=== PATIENT | female | born 1985 | race Hispanic/Latino ===

== ENCOUNTER 2016-11-04 23:54 | Observation (INO) | payer OTHER ==
[~2016-11-04] VITALS: Ht 160 cm; Wt 131.3 kg
[2016-11-04 23:58] VITALS: BP 135/87; PULSE 109; RESP 16; O2SAT 97
--- NOTE | 2016-11-05 00:06 | ED.REPORT ---
HPI-General Illness Date of Service Nov 05, 2016 ED Provider: MD Percy This is a 30 year old female with history of recent dental procedure presenting complaining of throat swelling that began 4 hours ago. Associated symptoms include tongue swelling, pain, and mild SOB. Pt had a root canal 5 days ago and is taking penicillin at this time. Denies voice changes, fever, chills, nausea, vomiting, headache, or ear pain. Nursing Notes Stated Complaint: SWOLLEN THROAT, TROUBLE BREATHING Chief Complaint: General Complaint Nursing Notes Reviewed: Yes Allergies: Coded Allergies: No Known Allergies (Unverified , 11/05/16) General Time Seen by MD: 00:05 Chief Complaint Other Hx Obtained From: Patient Arrived By: Walk-in Sudden in Onset?: Yes Onset Occurred: 1 - 4 hours ago Symptom Duration: Since onset Pertinent Negative: Pt denies other symptoms Recent Healthcare: No recent doctor visit, No recent hospitalization Similar Sx Previous: No Past Medical History Past Medical History Denies Past Surgical History Denies Ambulatory Status Independent Review of Systems Full Review of Systems Constitutional: Denies: Chills, Fever Ears / Nose / Throat: Reports: Throat swelling, Tongue swelling Respiratory: Reports: Shortness of breath, Denies: Non-productive cough Complete sys rev & neg: except as marked. Physical Exam Vital Signs Vital Signs Date Time Temp Pulse Resp B/P Pulse Ox O2 Delivery O2 Flow Rate FiO2 11/04/16 23:58 37.4 109 16 135/87 97 Room Air Initial VS: Reviewed Head / Eyes: Atraumatic, Normocephalic, PERRL Cardiovascular: Regular rate & rhythm, Heart sounds normal, Intact distal pulses Skin: Warm, Dry, No cyanosis Neurologic: Alert, Oriented, Nonfocal Psychiatric: Mood/affect normal, Behavior normal, Normal thought content General/Constitutional: Awake, Alert ENT: Mucous membranes moist Mouth: Positive: Pooling of secretions swelling under R tongue with deviation of tongue to the left Neck: Full range of motion Soft Tissue Neck: Positive: Swelling present... (no fluctuance ) Respiratory / Chest: Breath sounds = bilat, No respiratory distress, No rhonchi , No wheezing, No stridor Interpretation & Diagnostics CT NECK CONCLUSION: Mild inflammation along the right aspect of thyrohyoid muscle noted with adjacent reactive lymph nodes and no evidence of drainable fluid collection Lab Results Interpretation Result Diagram: 11/05/16 0020 11/05/16 0020 Test 11/05/16 00:20 Prothrombin Time 9.7sec (8.1-12.5) Prothromb Time International Ratio 0.91ratio Magnesium Level 1.9mg/dL (1.6-2.6) Lipase 18U/L (13-60) Re-Eval/Medical Decision Med Decision/Clinical Course 30-year-old female presents with a dental infection affecting the floor for mouth on the right. CT scan shows an intact airway but significant swelling and phlegmon around the anterior portion mouth under the tongue but medial to the jawline. She is begun with IV clindamycin and high-dose Decadron. ENT will follow. Admitted to the medicine service. Time of Eval: 02:53 Patient Status: Mild relief Re-Evaluation/Progress Note: Discussed plan for admission, all questions addressed. Consultation #1: Referral / Consult Name: Angel Melendez MD Consulted With: ENT Call Returned at: 02:55 Timber Setter: Agrees with eval, Agrees with plan Consultation #2: Referral / Consult Name: Cj Gunderson MD Consulted With: Hospitalist Call Returned at: 02:59 Timber Setter: Accepts admit Counseled Regarding: Diagnosis, Lab results, Need for follow-up, Need for admission Discharge & Departure Primary Impression: Phlegmon Additional Impressions: Mouth swelling Odontogenic infection of jaw Disposition: ADMITTED TO HOSPITAL Discharge Condition All VS Reviewed: Yes Condition: Stable Scribe Attestation Portions of this note were transcribed by Selma Calle. I, Dr. Greer personally performed the history, physical exam and medical decision-making; I reviewed and confirmed the accuracy of the information in the transcribed note. Signed by: tono Bello. 11/04/2016, 00:40 Nuno Greer MD Nov 05, 2016 00:05 SELMA CALLE Nov 05, 2016 00:12 97mEq/L (97-108) Carbon Dioxide Level 26mmol/L (18-29) Blood Urea Nitrogen 8mg/dL (6-20) Creatinine 0.49mg/dL (0.57-1.00) Estimat Glomerular Filtration Rate 212mL/min (>59) Glucose Level 92mg/dL (60-99) Calcium Level 9.3mg/dL (8.5-10.1) Magnesium Level 1.9mg/dL (1.6-2.6) Total Bilirubin 0.7mg/dL (0.0-1.2) Aspartate Amino Transf (AST/SGOT) 25U/L (0-50) Alanine Aminotransferase (ALT/SGPT) 41U/L (0-32) Alkaline Phosphatase 81U/L (25-150) Total Protein 8.0g/dL (6.4-8.4) Albumin 4.2g/dL (3.4-5.0) Lipase 18U/L (13-60) Re-Eval/Medical Decision Time of Eval: 02:53 Patient Status: Mild relief Re-Evaluation/Progress Note: Discussed plan for admission, all questions addressed. Consultation #1: Referral / Consult Name: Angel Melendez MD Consulted With: ENT Call Returned at: 02:55 Timber Setter: Agrees with eval, Agrees with plan Consultation #2: Referral / Consult Name: Cj Gunderson MD Consulted With: Hospitalist Call Returned at: 02:59 Timber Setter: Accepts admit Counseled Regarding: Diagnosis, Lab results, Need for follow-up, Need for admission Discharge & Departure Primary Impression: Phlegmon Additional Impression: Mouth swelling Disposition: ADMITTED TO HOSPITAL Discharge Condition All VS Reviewed: Yes Condition: Stable Scribe Attestation Portions of this note were transcribed by Selma Calle. I, Dr. Greer personally performed the history, physical exam and medical decision-making; I reviewed and confirmed the accuracy of the information in the transcribed note. Signed by: tono Bello. 11/04/2016, 00:40 Nuno Greer MD Nov 05, 2016 00:05 SELMA CALLE Nov 05, 2016 00:12
[2016-11-05] MEDS ORDERED: 0.9% Sodium Chloride 1,000 ML IV ONE ×2 (00:08→01:50)
[2016-11-05] MEDS ORDERED: Ondansetron 2 mg/mL 2 mL Inj IVPUSH ONE (00:10)
[2016-11-05] MEDS ORDERED: Dexamethasone 10 mg/mL Inj IVPUSH ONE (00:10)
[2016-11-05] MEDS: HYDROmorphone 1 mg/mL Inj IVPUSH PRN ×2 (00:10→01:43)
[2016-11-05] MEDS ORDERED: Clindamycin Inj 900 MG in IV Premix 1 EACH IV ONE (00:15)
[2016-11-05 00:42] LABS: BASOPHILS % (AUTO) 0.1 % (0-3); EOSINOPHILS % (AUTO) 0.5 % (0-5); MONOCYTES % (AUTO) 5.4 % (4-12); Mean Corpuscular Hemoglobin 28.2 pg (27.0-35.0); Mean Corpuscular Volume 83.8 fL (81-100); NEUTROPHILS % (AUTO) 77.2 % (40-74); Platelet Count 234 bil/L (150-400)
[2016-11-05 00:56] LABS: INR 0.91 ratio
[2016-11-05 01:09] LABS: Magnesium 1.9 mg/dL (1.6-2.6)
[2016-11-05] MEDS ORDERED: Ondansetron 2 mg/mL 2 mL Inj IVPUSH PRN (03:25)
[2016-11-05] MEDS ORDERED: Alum-Mag Hydrox-Simeth 30 mL Suspension PO PRN (03:25)
[2016-11-05] MEDS ORDERED: Polyethylene Glycol (PEG) 17 Gm Powder PO PRN (03:25)
[2016-11-05] MEDS: HYDROmorphone 0.5 mg/0.5 mL iSecure Syringe IVPUSH PRN ×2 (03:27→03:56)
--- NOTE | 2016-11-05 03:57 | PCM.HPMED ---
Subjective Date of Service Nov 05, 2016 Primary Provider: Admitting Physician: Primary Care Physician: Kim Attending Physician: Chief Complaint: mouth swelling History of Present Illness: Healthy 30 yo F presented to the ED with complaints of throat swelling that began earlier today. She reports that she had a right lower molar root canal last , then developed increasing pain so she was prescribed Penicillin at her dental office on Saturday. She reports the pain has been increasing and also endorses chills, tongue swelling, and some mild SOB. She has been unable to tolerate PO intake besides her medications and fluids these past few days. In the ED, she was given Dexamethasone to decrease the swelling and was started on IV Clindamycin after consulting ENT. Review of Systems: 12 Point ROS negative except as stated in HPI Allergies Coded Allergies: No Known Allergies (Unverified , 11/05/16) Home Medications Denies any PMH Reports distant history of Asthma, but has not used an inhaler over 10 years. Surgical History 2 Sections Family History Noncontributory Social History Hx Alcohol Use: Yes (occasional) Hx Substance Use: No Living Arrangement: with Family (Recently moved up from [place].) Exam Vital Signs Vital Sign - Last Date Time Temp Pulse Resp B/P Pulse Ox O2 Delivery O2 Flow Rate FiO2 11/04/16 23:58 37.4 109 16 135/87 97 Room Air Intake and Output 11/04/16 11/04/16 11/05/16 Cumulative From/Thru 15:00 23:00 07:00 11/04/16 23:58 - 11/05/16 01:28 Intake Total 1000 ml 1000 ml Balance 1000 ml 1000 ml Intake IV Total 1000 ml 1000 ml Exam Gen: Obese female in no acute distress HEENT: PERRLA, Sclera anicteric, Moderate Swelling of right mandibular soft tissue, Oral mucosa pink and non-erythematous, no discharge, poor dentition, denudation of anterior tip of tongue mucosa Neck: Soft, moderately tender to palpation of right anterior and posterior neck , multiple anterior cervical lymph nodes palpated CV: RRR, no m/r/c noted Resp: CTAB, normal respiratory effort Abd: Soft, obese, non-tender Msk: MS grossly intact and equal. Neuro: Alert and oriented, CN Grossly intact Skin: warm, dry, intact, no rashes noted Psych; Appropriate mood and affect Lab and Diagnostics Result Diagram: 11/05/16 0020 11/05/16 0020 X-Rays, CTs and MRIs CT Neck NightShift preliminary Report There is Submandibular and Submental celullitis R>L Mild inflammation along right aspect of the mylohyoid muscle noted, adjacent reactive lymph nodes, and no evidence of a drainable fluid collection. Assessment & Plan Healthy 30 yo F who underwent a dental procedure 4 days ago presents to the ED with complaints of throat swelling that began earlier today. #Deep Tissue Infection of Neck -Includes cellulitis of Submandibular and submental region and inflammation of right mylohyoid muscle as noted on CT. -Airway is currently stable and ENT has been consulted, they will assess patient in the AM -Will continue IV Clindamycin Q8h and IV NS 150mls/hr. -Currently NPO in anticipation of any procedure. -Pain management with IV Toradol and IV Morphine for severe pain. Bowel Regimen Prn constipation Restoril prn insomnia Pain Evaluation: Adequate Pain Control VTE Prophylaxis: Sub-Q Heparin (Unfractionated) Resuscitation Status: CPR: Attempt Resuscitation Attending Statement The patient was seen and examined together with Dr. Hardin on 11/05/16 and I agree with the history, exam and plan as outlined in the note above. Jun Hardin DO Nov 05, 2016 03:57 Cj Gunderson MD Nov 05, 2016 04:44
[2016-11-05 04:05] VITALS: BP 136/82; PULSE 100; RESP 18; O2SAT 98
[2016-11-05 04:32] VITALS: BP 136/80; PULSE 100; RESP 18; O2SAT 98
[2016-11-05] MEDS: 0.9% Sodium Chloride 1,000 ML IV SCH ×2 (04:41→20:56)
[2016-11-05 04:51] LABS: APPEARANCE,URINE CLOUDY (CLEAR,HAZY); COLOR,URINE STRAW (YELLOW); PH,URINE 6.5 (5.0-8.0)
[2016-11-05 04:52] LABS: OCCULT BLOOD,URINE TRACE (NEGATIVE); UROBILINOGEN,URINE NORMAL (NORMAL)
[2016-11-05 05:01] VITALS: BP 119/79; PULSE 89; RESP 16; O2SAT 96
--- NOTE | 2016-11-05 06:52 | NUR ---
Admit Pt arrived via wheelchair at 0420 to [facility] transferred w/ ease. Pt is a normal healthy adult, no health history, this is first hospitalization other than previous c-sections. Pt is doing well and oriented to room and call light for safety.
[2016-11-05 07:11] LABS: BASOPHILS % (AUTO) 0 % (0-3); EOSINOPHILS % (AUTO) 0 % (0-5); Mean Corpuscular Hemoglobin 28.3 pg (27.0-35.0); NEUTROPHILS % (AUTO) 90.9 % (40-74); Platelet Count 239 bil/L (150-400)
[2016-11-05 08:30] VITALS: BP 123/74; PULSE 86; RESP 20; O2SAT 98
[2016-11-05] MEDS ORDERED: Clindamycin Inj 900 MG in IV Premix 1 EACH IV SCH (08:30)
[2016-11-05] MEDS ORDERED: DEXAMETHASONE IV ONE (08:40)
[2016-11-05] MEDS ORDERED: SODIUM CHLORIDE PHA MIX 0.9% IV ONE (08:40)
[2016-11-05] MEDS: Heparin 5,000 Unit/mL Inj SUBQ SCH ×2 (08:46→16:19)
--- NOTE | 2016-11-05 09:36 | NUR ---
Social Work: Brief Note Data & Assessment: EMR Reviewed. Patient is a 30 y/o female that admitted for Phlegmon R. floor of mouth. Patient's NOK is listed as Forrest brice [phone]. Patient does not havr a DPOA on file. Patient's PCP is not listed. Patient's insurance is [employer]. Patient does not have any current discharge needs. SW will continue to follow incase a need arise. Plan: It is likely that the patient will discharge home via POV no needs. SW will continue to follow for discharge planning needs. Smiley Peng, CECELIA, ACM
--- NOTE | 2016-11-05 09:40 | DRSVH ---
PROCEDURE: CT NECK SOFT TISSUES WITH CONTRAST ([id number]) INDICATIONS: swollen floor of mouth TECHNIQUE: After the administration of intravenous contrast, 3.0 mm axial sections acquired from the sella to th e aortic arch. Additional oblique axial 3.0 mm sections acquired through the pharynx. 3 mm thick co michael reformats were generated. For radiation dose reduction, the following was used: automated exp osure control. COMPARISON: None. FINDINGS: Image quality: Excellent. Lymph nodes: Enlarged bilateral level I, level II and level III lymph nodes are noted likely represen t reactive lymph nodes associated with cellulitis. Vessels: Visualized vasculature appears patent. Neck spaces: Mild inflammatory changes noted in the submental and submandibular soft tissues, right greater than left. No abscess. The oropharynx, nasopharynx, and pharynx demonstrate no mucosal lesion s. The vocal cords, false vocal cords, pyriform sinuses, epiglottis, vallecula, and tongue base all appear normal. Extramucosal spaces appear unremarkable. Glands: The parotid and submandibular glands appear normal. Thyroid gland is within normal limits. Miscellaneous: Visualized brain and orbits appear normal. Lung apices appear clear. Superficial so ft tissues appear normal. Bones: No suspicious bony lesions. Visualized sinuses and mastoids appear unremarkable. IMPRESSION: 1. Mild cellulitis involving the submental and submandibular soft tissues, right greater than left. 2. No abscess. 3. No chaya evidence of osteomyelitis. CT imaging can be insensitive to osteomyelitis during the init ial 15 days of the disease process. If there is clinical concern for osteomyelitis, then three-phase nuclear medicine bone scan is warranted. Dictated by: Ele Shaver MD, PhD on 11/05/2016 at 9:38 Approved by: Ele Shaver MD, PhD on 11/05/2016 at 9:38
--- NOTE | 2016-11-05 11:02 | NUR ---
ENT consult Hospitalist maddison paged [phone] Melendez would like to discuss pt status. Per hospitalist at 1030 rounds, has left message for Dr. Melendez. Pt stable.
[2016-11-05] MEDS ORDERED: oxyCODONE-Acetamin 5-325 mg Tablet PO PRN (13:10)
--- NOTE | 2016-11-05 13:19 | PCM.PNMED ---
Subjective Date of Service Nov 05, 2016 Subjective 30-year-old woman with soft tissue infection of neck, related to dental infection. Currently status post exploration by ENT, Dr. Pita Melendez. There is no abscess. She is experiencing moderate dysphagia. Pain is generally adequately controlled. No systemic symptoms at this time. Exam Vital Signs Vital Sign - Last Date Time Temp Pulse Resp B/P Pulse Ox O2 Delivery O2 Flow Rate FiO2 11/05/16 08:30 36.7 86 20 123/74 98 Room Air Intake and Output 11/04/16 11/04/16 11/05/16 Cumulative From/Thru 15:00 23:00 07:00 11/04/16 23:58 - 11/05/16 05:01 Intake Total 1000 ml 1000 ml Balance 1000 ml 1000 ml Intake IV Total 1000 ml 1000 ml # Voids 2 2 Exam General: Obese young woman appears mildly uncomfortable HEENT: Limited opening of jaw. No mucosal lesions. Palpable induration approximately 4 cm x 4 cm Center submandibular Neck: Supple no adenopathy Chest: clear to auscultation Cardiac: S1S2, no murmur Abdomen: BS normal, non-tender Extremities: No pedal edema Neuro: A&O, cranial nerves symmetric, motor strength 5/5, coordination normal IVs and Medications Medications Reviewed: Medications were reviewed in detail Lab and Diagnostics Result Diagram: 11/05/1660611/05/16 0607 X-Rays, CTs and MRIs CT Neck NightShift preliminary Report There is Submandibular and Submental celullitis R>L Mild inflammation along right aspect of the mylohyoid muscle noted, adjacent reactive lymph nodes, and no evidence of a drainable fluid collection. Assessment & Plan Healthy 30 yo F who underwent a dental procedure 4 days ago presents to the ED with complaints of throat swelling that began earlier today. #Deep Tissue Infection of Neck -Includes cellulitis of Submandibular and submental region and inflammation of right mylohyoid muscle as noted on CT. -Airway is currently stable and ENT judges that she is stable for discharge when on adequate by mouth regimen -We will switch clindamycin to by mouth -Full liquid diet -Pain management with by mouth naproxen and Percocet - Discontinue IV fluids and see if she can maintain adequate hydration and oral pain control today - Plan to discharge in a.m. - Recommend prompt follow up with [facility] dental [facility] for tooth extraction VTE Prophylaxis: Sub-Q Heparin (Unfractionated) Resuscitation Status: CPR: Attempt Resuscitation Time spent 25 minutes Dave Valdovinos MD Nov 05, 2016 13:19
--- NOTE | 2016-11-05 13:20 | NUR ---
Status Pt tolerating water and ensure w/o difficulty, pain controlled so far this shift. Denies SOB. Up OOB to bathroom and for self cares. Pt will [facility] tomorrow to determine availability of appointment.
[2016-11-05 15:05] VITALS: BP 118/71; PULSE 86; RESP 18; O2SAT 95
[2016-11-05 20:30] VITALS: BP 128/75; PULSE 79; RESP 18; O2SAT 95
--- NOTE | 2016-11-05 23:46 | CONS ---
[address] [address] CONSULTATION REPORT PATIENT: JAYLON CHEEK : 1985 MR#: [id number] ADMIT: 11/05/2016 JOB ID: [id number] DATE OF SERVICE: HISTORY OF PRESENT ILLNESS: This is a 30-year-old female who was admitted from the emergency department early in the morning of November 05. She had problems with her right third molar and had been developing significant swelling and discomfort. A CT scan taken early that morning did not show a abscess formation, however, did show a lot of soft tissue swelling. The patient was having difficulty chewing, as well as swallowing. She was given IV antibiotics and steroids, and admitted to the hospital. When I saw her approximately six hours later, she was in much less discomfort, she was able to swallow in more improved fashion. She was having about the same amount of swelling. She was having less tenderness. PHYSICAL EXAMINATION: Showed a fullness to bimanual palpation to the area beneath the mandible near the right third molar. ASSESSMENT: Right dental abscess. PLAN: I would continue hydration, IV antibiotics, and consider discharge as possible to have the tooth extracted. That will hopefully be curative in her. I will continue to follow her with you.
[2016-11-06 00:41] VITALS: PULSE 81; RESP 18; O2SAT 97
[2016-11-06] MEDS: Heparin 5,000 Unit/mL Inj SUBQ SCH (00:41)
[2016-11-06 06:09] VITALS: BP 61/75; PULSE 86; RESP 18; O2SAT 95
--- NOTE | 2016-11-06 07:22 | NUR ---
Oral Airway intact. Pt tolerated full liquid diet well. No swallow difficulties noted or reported. Also putting was given to pt with oral antibiotic. Pt tolerated well. She is enthusiastic to eat breakfast this am. VSS. No overt complications noted.
[2016-11-06 07:51] VITALS: BP 111/61; PULSE 86; RESP 16; O2SAT 99
[2016-11-06] MEDS ORDERED: NAPR500T5 PO (08:05)
[2016-11-06] MEDS ORDERED: OXYC1TAB24 PO (08:05)
[2016-11-06] MEDS ORDERED: CLIN-78 PO (08:05)
--- NOTE | 2016-11-06 08:08 | PCM.DIMED ---
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 Diet Other (keep up fluid intakes, soft foods as tolerated until symptoms improve) Activity No restrictions Call your provider Fever or Chills Patient Instructions He should call [facility] dental clinic and indicate that you were hospitalized for an infection of the mouth and throat and need urgent dental attention. Follow-up plan Contact your primary care provider for follow-up appointment within 1 week. Dave Valdovinos MD Nov 06, 2016 08:08
--- NOTE | 2016-11-06 08:11 | PCM.DC.MED ---
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 Brief History History of Present Illness (per admission note): Healthy 30 yo F presented to the ED with complaints of throat swelling that began earlier today. She reports that she had a right lower molar root canal last , then developed increasing pain so she was prescribed Penicillin at her dental office on Saturday. She reports the pain has been increasing and also endorses chills, tongue swelling, and some mild SOB. She has been unable to tolerate PO intake besides her medications and fluids these past few days. In the ED, she was given Dexamethasone to decrease the swelling and was started on IV Clindamycin after consulting ENT. Hospital Course Healthy 30 yo F who underwent a dental procedure 4 days ago presents to the ED with complaints of throat swelling that began earlier today. #Deep Tissue Infection of Neck -Includes cellulitis of Submandibular and submental region and inflammation of right mylohyoid muscle as noted on CT. -Airway is currently stable and ENT judges that she is stable for discharge when on adequate by mouth regimen -We will switch clindamycin to by mouth 600 mg 4 times a day 5 days -Full liquid diet, advance as tolerated -Pain management with by mouth naproxen and Percocet - Patient was able to maintain adequate by mouth intake and urine output on oral regimen prior to discharge - Recommend prompt follow up with [facility] dental clinic for tooth extraction Exam Vital Signs (Last) Date Time Temp Pulse Resp B/P Pulse Ox O2 Delivery O2 Flow Rate FiO2 11/06/16 07:51 36.5 86 16 111/61 99 11/06/16 06:09 Room Air Exam General: Obese woman no acute distress HEENT: sclerae anicteric, oral mucosa moist, difficult to open jaw fully, no oral ulceration or exudative lesions Neck: no JVD, tender below jaw palpable induration, no cervical adenopathy Chest: clear to auscultation Cardiac: S1S2, no murmur Abdomen: BS normal, non-tender Extremities: No pedal edema Neuro: A&O, cranial nerves symmetric, motor strength 5/5, Test 11/05/16 00:20 11/05/16 04:15 11/05/16 06:07 Prothrombin Time 9.7sec (8.1-12.5) Prothromb Time International Ratio 0.91ratio Magnesium Level 1.9mg/dL (1.6-2.6) Lipase 18U/L (13-60) Urine Color Straw (YELLOW) Urine Appearance Cloudy (CLEAR,HAZY) Urine pH 6.5 (5.0-8.0) Urine Specific [place] 1.016 (1.003-1.035) Urine Protein Negativemg/dL (NEG,TRACE) Urine Glucose (UA) Negativemg/dL (NEGATIVE) Urine Ketones Negativemg/dL (NEGATIVE) Urine Occult Blood Trace (NEGATIVE) Urine Nitrite Negative (NEGATIVE) Urine Bilirubin Negative (NEGATIVE) Urine Urobilinogen Normalmg/dL (NORMAL) Urine Leukocyte Esterase Moderate (NEGATIVE) Urine RBC 0-2/hpf (0-2) Urine WBC 6-10/hpf (0-5) Urine Epithelial Cells Moderate/hpf (NONE-MOD) Urine Crystals None seen (NONE SEEN) Urine Bacteria Few/hpf (NONE-FEW) Urine Hyaline Casts None/lpf (NONE) Urine Granular Casts None seen (NONE SEEN) Urine Waxy Casts None seen (NONE SEEN) Urine Red Blood Cell Casts None seen (NONE SEEN) Urine White Blood Cell Casts None seen (NONE SEEN) Urine Mucus Present (None Seen) Urine Trichomonas None seen (NONE SEEN) Urine Yeast None (NONE SEEN) Urinalysis Comment None Urine Culture Reflexed Indicated White Blood Count 8.8th/mm3 (3.8-10.1) Red Blood Count 4.20mil/mm3 (3.90-5.20) Hemoglobin 11.9g/dL (12.0-15.6) Hematocrit 35.3% (35.0-46.0) Mean Corpuscular Volume 84.0fL (81-100) Mean Corpuscular Hemoglobin 28.3pg (27.0-35.0) Mean Corpuscular Hemoglobin Concent 33.7% (32.0-37.0) Red Cell Distribution Width 13.9% (12.3-15.4) Platelet Count 239bil/L (150-400) Neutrophils (%) (Auto) 90.9% (40-74) Lymphocytes (%) (Auto) 8.0% (14-46) Monocytes (%) (Auto) 1.0% (4-12) Eosinophils (%) (Auto) 0% (0-5) Basophils (%) (Auto) 0% (0-3) Sodium Level 138mEq/L (134-144) Potassium Level 4.4mEq/L (3.5-5.2) Chloride Level 103mEq/L (97-108) Carbon Dioxide Level 25mmol/L (18-29) Blood Urea Nitrogen 7mg/dL (6-20) Creatinine 0.51mg/dL (0.57-1.00) Estimat Glomerular Filtration Rate 203mL/min (>59) Glucose Level 167mg/dL (60-99) Calcium Level 8.7mg/dL (8.5-10.1) Total Bilirubin 0.4mg/dL (0.0-1.2) Aspartate Amino Transf (AST/SGOT) 27U/L (0-50) Alanine Aminotransferase (ALT/SGPT) 39U/L (0-32) Alkaline Phosphatase 85U/L (25-150) Total Protein 7.0g/dL (6.4-8.4) Albumin 3.8g/dL (3.4-5.0) Discharge Medications Discharge Medications Clindamycin (Clindamycin) 300 Mg Capsule 600 MG PO QID Prescribed by: ROMY MONTES MD As needed Naproxen (Naproxen) 500 Mg Tablet.dr 500 MG PO BID PRN PRN For Pain Prescribed by: ROMY MONTES MD oxyCODONE-Acetaminophen 5-325 mg (oxyCODONE-Acetaminophen 5-325 mg) 1 Each Tablet 1 TAB PO Q6H PRN PRN For Pain Prescribed by: ROMY MONTES MD Additional med instructions Take clindamycin antibiotic tablets until they are complete in 5 days. Followup Plan Disposition: Home Follow-up plan Contact your primary care provider for follow-up appointment within 1 week. Discharge Diet: Other (keep up fluid intakes, soft foods as tolerated until symptoms improve) Discharge Activity: No restrictions Patient Instructions He should call [facility] dental clinic and indicate that you were hospitalized for an infection of the mouth and throat and need urgent dental attention. Time spent 25 minutes copies to: [facility] Romy Montes MD Nov 06, 2016 08:11
--- NOTE | 2016-11-06 09:09 | NUR ---
Discharge Pt discharged at 09. She was given 3 prescriptions to take with her. She was given discharge instructions and instructions for follow up care. She confirmed understanding of these instructions. She would be going to [facility] to see a dentist today at 0945. Unit staff walked her to the main entrance where her sister in law picked her up.
== END 2016-11-06 09:05 | disposition home or self-care (01) ==
LOC: SED 23:54 → MOC 11-05 03:47 → OBSVTOIN 11-05 03:47 → INTOOBSV 11-05 03:47
PROVIDERS: ADMIT Hospitalist; ATTEND Hospitalist
DX: K12.2 Cellulitis and abscess of mouth (principal)
CPT/HCPCS: 36415; 70491; 80053; 81000; 83690; 83735; 85025; 85610; 87086; 96365; 96366; 96375; 96376; 99285; J1100; J1170; J1644; J2270; J2405; J7030; Q9967

== ENCOUNTER 2017-07-19 19:00 | Emergency (ER) | payer OTHER ==
[~2017-07-19] VITALS: Ht 160 cm; Wt 129.6 kg
[~2017-07-19 19:00] MED LIST: CLIN-78 PO; NAPR500T5 PO; OXYC1TAB24 PO
[2017-07-19 19:03] VITALS: BP 169/86; PULSE 89; RESP 20; O2SAT 99
--- NOTE | 2017-07-19 19:22 | ED.REPORT ---
HPI-Dental/Mouth Prob Date of Service Jul 19, 2017 ED Provider: Dr. Ann Pt is a 31 year old female presenting to the ED complaining of sharp 10/10 right sided tooth pain onset yesterday, worsened an hour ago. She had a tooth infection a month ago and was hospitalized here for 3 days and had to have a tooth removed. Denies fever, chills, or a bad taste in her mouth. Nursing Notes Stated Complaint: TOOTH ACHE Chief Complaint: Dental Nursing Notes Reviewed: Yes Allergies: Coded Allergies: No Known Allergies (Unverified , 11/05/16) Scheduled Amoxicillin (Amoxicillin) 500 Mg Capsule 500 MG PO TID Clindamycin (Clindamycin) 300 Mg Capsule 600 MG PO QID Scheduled PRN Hydrocodone-Acetaminophen 5-325 mg (Hydrocodone-Acetaminophen 5-325 mg) 1 Each Tablet 1 TABLET PO Q4H PRN PRN For Pain Naproxen (Naproxen) 500 Mg Tablet.dr 500 MG PO BID PRN PRN For Pain oxyCODONE-Acetaminophen 5-325 mg (oxyCODONE-Acetaminophen 5-325 mg) 1 Each Tablet 1 TAB PO Q6H PRN PRN For Pain General Time Seen by MD: 19:21 Chief Complaint Tooth pain Hx Obtained From: Patient Arrived By: Walk-in Onset Occurred: Yesterday Symptom Duration: Since onset Quality: Painful Severity: Current: Pain level 10 out of 10 Severity: Maximum: Pain level 10 out of 10 Recent Healthcare: No recent doctor visit, No recent hospitalization Similar Sx Previous: Yes Past Medical History Past Medical History History of tooth infection 1 month ago Past Surgical History Denies Ambulatory Status Independent Review of Systems Denies a bad taste in her mouth. Constitutional: Denies: Chills, Fever Ears / Nose / Throat: Reports: Toothache Complete sys rev & neg: except as marked. Physical Exam Initial Vital Signs Vital Signs (First) Date Time Temp Pulse Resp B/P Pulse Ox O2 Delivery O2 Flow Rate FiO2 07/19/17 19:03 37.0 89 20 169/86 99 Room Air Initial VS: Reviewed, Vital signs abnormal General/Constitutional: Well-developed, Well-nourished Head / Eyes: Atraumatic, Normocephalic, PERRL Respiratory: Breath sounds normal, Clear to auscultation, No respiratory distress Cardiovascular: Regular rate & rhythm, Heart sounds normal, Intact distal pulses Abdomen / GI: Soft, Non-tender, No guarding, No rebound, No distention Extremities: Vascular intact, Neuro intact, No swelling, No tenderness Skin: Warm, Dry, No cyanosis Neurologic: Alert, Oriented, Nonfocal Psychiatric: Mood/affect normal, Behavior normal, Normal thought content ENT: Atraumatic, Airway patent, Mucous membranes moist, Pharynx NL Pain in tooth #30. No swelling, redness or adenopathy. Neck: Atraumatic, Supple, No adenopathy Re-Eval/Medical Decision Med Decision/Clinical Course The patient presents with dental pain, there is no obvious sign of an infection but she feels like swollen. She did get some relief with the dental block and was started on antibiotics. Re-Evaluation/Progress #1: Time of Eval: 19:28 Patient Status: Condition improved Re-Evaluation/Progress Note: Injected Bupivicaine into the gum. Re-Evaluation/Progress #2: Time of Eval: 19:52 Patient Status: Condition improved Re-Evaluation/Progress Note: Pt pain improved but still at a 7 or 8/10. Discussed plan for discharge. Pt understands and agrees with plan. Counseled Regarding: Diagnosis, Lab results, Need for follow-up, When/why to return to ED Discharge & Departure Primary Impression: Toothache Disposition: Home Discharge Condition All VS Reviewed: Yes Condition: Improved Patient Instructions: Toothache (ED) Additional Instructions: Please follow up with your dentist tomorrow. We gave you an injection of numbing medication which should bring you some temporary relief, but this will need to be followed up with by your dentist. I did not find any signs of infection. Return to the ER if you develop any new or worsening symptoms such as fever, chills, nausea, vomiting, or increased pain. Referrals: NOPCP (PCP) Scribe Attestation Portions of this note were transcribed by Ann Marie Larson. I, Dr. Ann personally performed the history, physical exam and medical decision-making; I reviewed and confirmed the accuracy of the information in the transcribed note. Signed by : Hortensia Giraldo, 07/19/2017. Ela Ann MD Jul 19, 2017 19:22 ANN MARIE LARSON Jul 19, 2017 19:31
[2017-07-19] MEDS ORDERED: AMOX500C2 PO (19:50)
[2017-07-19] MEDS ORDERED: HYDR-4003 PO (19:50)
[2017-07-19 20:15] VITALS: BP 154/78; PULSE 86; RESP 20; O2SAT 99
== END 2017-07-19 20:15 | disposition home or self-care (01) ==
LOC: SED 19:00
DX: K08.89 Other specified disorders of teeth and supporting structures (principal); Z86.19 Personal history of other infectious and parasitic diseases; Z98.818 Other dental procedure status